=== PATIENT | female | born 1965 | race Caucasian/White ===

== ENCOUNTER 2018-09-13 19:43 | Inpatient (IN) ==
[2018-09-13 21:22] LABS: BASO# 0.06 X1000 (0.0-0.2); BASO% 0.4 % (0.0-0.8); EOS# 0.52 X1000 (0.0-0.7); EOS% 3.8 % (0.0-10.0); HEMATOCRIT 37.9 % (37.0-47.0); HEMOGLOBIN 12.7 g/dL (12.0-16.0); IMM GRAN# 0.05 X1000 (0.0-0.04); IMM GRAN% 0.4 % (0.0-0.5); LYMPH# 3.51 X1000 (1.2-3.4); LYMPH% 25.8 % (20.5-51.1); MCH 28.6 PG (27-31); MCHC 33.5 g/dL (33-37); MCV 85.4 FL (81-99); MONO% 7.3 % (1.7-9.3); MPV 10.1 FL (7.4-10.4); NEUT# 8.47 X1000 (1.4-6.5); NEUT% 62.3 % (42.2-75.2); PLT 342 X1000 (130-400); RBC 4.44 XMIL (4.2-5.4); RDW 14.3 % (11.5-14.5); WBC 13.61 X1000 (4.8-10.8)
--- NOTE | 2018-09-13 21:23 | Diag Imaging Result Doc PS360 ---
EXAM: CHEST-PORTABLE HISTORY: psych screen TECHNIQUE: Portable chest COMPARISON: None. FINDINGS: The lungs are well expanded. The heart is not enlarged. The vessels are not distended. There are no infiltrates. No effusion identified. IMPRESSION: Negative exam. Electronically signed by Yobany Fine 09/13/2018 9:21 PM
[2018-09-13 21:33] LABS: UR AMPHETAMINES QUAL NONE DETECTED (NONE DETECT); UR BARBITUATES QUAL NONE DETECTED (NONE DETECT); UR BENZODIAZEPIN QUAL NONE DETECTED (NONE DETECT); UR CANNABINOIDS QUAL NONE DETECTED (NONE DETECT); UR COCAINE QUAL NONE DETECTED (NONE DETECT); UR METHADONE QUAL NONE DETECTED (NONE DETECT); UR METHAMPHETAMINE QUAL NONE DETECTED (NONE DETECT); UR OPIATES QUAL NONE DETECTED (NONE DETECT); UR OXYCODONE QUAL NONE DETECTED (NONE DETECT); UR PCP QUAL NONE DETECTED (NONE DETECT); UR PROPOXYPHENE QUAL NONE DETECTED (NONE DETECT); UR TCA QUAL NONE DETECTED (NONE DETECT)
[2018-09-13 21:41] LABS: ACETAMINOPHEN < 1.2 ug/mL (10-30); AGAP 14; ALKALINE PHOSPHATASE 106 U/L (32-104); BUN 10 mg/dL (8-22); CALCIUM 9.2 mg/dL (8.8-10.2); CHLORIDE 107 mmol/L (98-107); COSMO 283; CREATININE 0.7 mg/dL (0.5-0.9); ESTIMATED GFR > 60; GLUCOSE 111 mg/dL (70-104); GOT 12 U/L (10-30); GPT 21 U/L (10-36); POTASSIUM 3.8 mmol/L (3.5-5.1); SALICYLATES < 3.00 mg/dL (3-10); SODIUM 142 mmol/L (136-145); TCO2 22 mmol/L (25-35); TOTAL PROTEIN 6.4 g/dL (6.3-8.3)
--- NOTE | 2018-09-13 22:34 | PROVIDER DOCUMENTATION ---
This chart was entered by Sharmin Bai Scribe, acting as scribe for Johnny Jose MD. HPI-Psychological Disorder - General Chief Complaint: Psych Stated Complaint: suicidal ideations Time Seen by Provider: 09/13/18 20:00 Source: patient Allergies/Adverse Reactions: Patient Allergies Allergy/AdvReac Type Severity Reaction Status Date / Time Sulfa (Sulfonamide Allergy ANAPHYLAXIS Verified 09/02/18 00:53 Antibiotics) clindamycin AdvReac HIVES Verified 09/11/18 14:08 Home Medications: Home Medication List Medication Instructions Recorded Confirmed Last Taken Type Amoxicillin/Pot Clavulanate 875 mg PO Q12HR #14 tab 09/02/18 Unknown Rx [Augmentin] Amoxicillin/Pot Clavulanate 875 mg PO Q12HR #14 tab 09/11/18 Unknown Rx [Augmentin] - History of Present Illness-Psych Nature of Presenting Problem: pt is a 52 yr old female presenting via EMS with 2 week complaint of depression and suicidal ideation. pt states "Its time for me to go, I just don't want to be here anymore" also states "I've been sick and cant get over it and I'm tired of taking medications " pt reports she was seen by her PCP today after having a panic attack on Wednesday. pt reports recent sinus and upper respiratory infections and a nose bleed that lasted 3 days 08/24-08/27. pt plan to drive or walk into oncoming traffic Onset/Duration: reports: other (2 weeks) Timing: reports: changing over time, getting worse Situational problems related to:: reports: other (health issues) Psychiatric Complaints: reports: insomnia, suicidal ideation Substance Use: reports: denies Previous psych related hospitalizations?: No Patient arrived by:: EMS called by spouse/family Similar Symptoms Previously?: No Recently seen or treated by another doctor?: Yes (seen in ER 09/11/18, seen by PCP today) - Suicidal Ideation How did the ingestion/other suicidal act come to attention?: self reported to family Suicide Risk Assessment: depressed, organized plan, frightened friends-family Suicidal Attempt Method: reports: Motor Vehicle Review of Systems - Adult - REVIEW OF SYSTEMS - ADULT Constitutional: denies: fever Eyes: reports: no symptoms reported Ears, Nose, Mouth & Throat: reports: sinus problem Cardiovascular: reports: no symptoms reported Respiratory: denies: cough, shortness of breath Gastrointestinal: reports: no symptoms reported Genitourinary: reports: no symptoms reported Musculoskeletal: reports: no symptoms reported Integumentary: reports: no symptoms reported Neurological: reports: no symptoms reported Psychiatric: reports: anxiety, depression, emotional problems, suicidal thoughts Endocrine: reports: no symptoms reported Hematologic/Lymphatic: reports: no symptoms reported Allergic/Immunologic: reports: no symptoms reported All Other Systems: Reviewed and Negative Past History - Adult - PAST MEDICAL HISTORY-ADULT Review of Records: reports: Old Records Reviewed, Nursing Assessment Review, Medications Reviewed, Social history reviewed & non-contributory. Major Childhood Illnesses: reports: denies history Cardiovascular: reports: denies history Respiratory: reports: denies history Gastrointestinal: reports: denies history Obstetrical/Gynecological: reports: denies history Genitourinary: reports: denies history Musculoskeletal: reports: denies history Neurological: reports: denies history Endocrine/Immune: reports: denies history Other Conditions: reports: denies history - PRIOR SURGERIES/PROCEDURES Surgical/Procedure History: reports: BTL, orthopedic (extremity) (R wrist capral tunnel) - IMMUNIZATION STATUS Childhood Immunizations: See Nurse Assessment Flu Vaccine: See Nurse Assessment - FAMILY HISTORY Family History: reviewed, not pertinent - SOCIAL HISTORY Smoking: denies Substance Use: denies Living Situation: family Physical Exam-Psych Focus - Physical Exam-Psych Initial Vital Signs Reviewed: Yes (`) Appearance: appropriate appearance, neat, no apparent distress, alert Neurological: alert, depressed affect, flat Behavior/Eye Contact/Speech: cooperative, normal speech, avoids eye contact Thoughts/Hallucinations: normal thought pattern, no apparent hallucination HENMT: normocephalic/atraumatic, moist mucous membranes Neck: non-tender, full range of motion, supple, normal inspection Respiratory: chest non-tender, lungs clear, normal breath sounds Cardiovascular: normal peripheral pulses, regular rate, rhythm, no edema Abdominal Exam: normal bowel sounds, non tender, soft Lymphatic: no adenopathy Back Exam: normal inspection, no CVA tenderness, no vertebral tenderness Extremity: normal range of motion, non-tender, normal gait, normal inspection Integumentary: normal color, normal turgor, warm/dry Progress - PLAN OF CARE/RESULTS Progress/Plan/Lab Results: Vital Signs - 8 hr 09/14/18 00:00 Temperature 98 F Pulse Rate 78 Respiratory Rate 18 Blood Pressure 140/80 O2 Sat by Pulse Oximetry 99 Laboratory Results - last 24 hr 09/13/18 09/13/18 09/13/18 19:51 19:51 21:12 WBC RBC Hgb Hct MCV MCH MCHC RDW Std Deviation Plt Count MPV Immature Gran % (Auto) Neut % (Auto) Lymph % (Auto) Stark % (Auto) Eos % (Auto) Baso % (Auto) Immature Gran # (Auto) Neut # (Auto) Lymph # (Auto) Stark # (Auto) Eos # (Auto) Baso # (Auto) Sodium Potassium Chloride Carbon Dioxide Anion Gap BUN Creatinine Estimated GFR/1.73 m2 BUN/Creatinine Ratio Glucose Calculated Osmolality Calcium Magnesium Total Bilirubin AST ALT Alkaline Phosphatase Total Protein Albumin Globulin Albumin/Globulin Ratio TSH 1.41 Free T4 Urine Source CLEAN CATCH Urine Color YELLOW Urine Clarity CLEAR Urine pH 5.0 Ur Specific [place] 1.010 Urine Protein NEGATIVE Urine Ketones NEGATIVE Urine Blood NEGATIVE Urine Nitrite NEGATIVE Urine Bilirubin NEGATIVE Urine Urobilinogen NORMAL Urine Microscopic RBC <10 Urine WBC 2+ A Urine Microscopic WBC 10-20 A Ur Epithelial Cells <10 Urine Bacteria 2+ Urine Glucose NEGATIVE Salicylates Urine Opiates Screen NONE DETECTED Ur Oxycodone Screen NONE DETECTED Urine Methadone Screen NONE DETECTED U Propoxyphene Qual NONE DETECTED Acetaminophen Ur Barbituates Screen NONE DETECTED Ur Tricyclics Screen NONE DETECTED Ur Phencyclidine Scrn NONE DETECTED Ur Amphetamines Screen NONE DETECTED U Methamphetamines Scrn NONE DETECTED U Benzodiazepines Scrn NONE DETECTED Urine Cocaine Screen NONE DETECTED U Cannabinoids Screen NONE DETECTED Plasma/Serum Ethyl Alc RPR 09/13/18 09/13/18 09/13/18 21:12 21:12 21:12 WBC 13.61 H RBC 4.44 Hgb 12.7 Hct 37.9 MCV 85.4 MCH 28.6 MCHC 33.5 RDW Std Deviation 14.3 Plt Count 342 MPV 10.1 Immature Gran % (Auto) 0.4 Neut % (Auto) 62.3 Lymph % (Auto) 25.8 Stark % (Auto) 7.3 Eos % (Auto) 3.8 Baso % (Auto) 0.4 Immature Gran # (Auto) 0.05 H Neut # (Auto) 8.47 H Lymph # (Auto) 3.51 H Stark # (Auto) 1.00 H Eos # (Auto) 0.52 Baso # (Auto) 0.06 Sodium 142 Potassium 3.8 Chloride 107 Carbon Dioxide 22 L Anion Gap 14 BUN 10 Creatinine 0.7 Estimated GFR/1.73 m2 > 60 BUN/Creatinine Ratio 14 Glucose 111 H Calculated Osmolality 283 Calcium 9.2 Magnesium 2.3 Total Bilirubin 0.20 AST 12 ALT 21 Alkaline Phosphatase 106 H Total Protein 6.4 Albumin 4.0 Globulin 2.0 Albumin/Globulin Ratio 2.0 TSH Free T4 Urine Source Urine Color Urine Clarity Urine pH Ur Specific [place] Urine Protein Urine Ketones Urine Blood Urine Nitrite Urine Bilirubin Urine Urobilinogen Urine Microscopic RBC Urine WBC Urine Microscopic WBC Ur Epithelial Cells Urine Bacteria Urine Glucose Salicylates < 3.00 L Urine Opiates Screen Ur Oxycodone Screen Urine Methadone Screen U Propoxyphene Qual Acetaminophen < 1.2 L Ur Barbituates Screen Ur Tricyclics Screen Ur Phencyclidine Scrn Ur Amphetamines Screen U Methamphetamines Scrn U Benzodiazepines Scrn Urine Cocaine Screen U Cannabinoids Screen Plasma/Serum Ethyl Alc RPR 09/13/18 09/13/18 21:12 21:12 WBC RBC Hgb Hct MCV MCH MCHC RDW Std Deviation Plt Count MPV Immature Gran % (Auto) Neut % (Auto) Lymph % (Auto) Stark % (Auto) Eos % (Auto) Baso % (Auto) Immature Gran # (Auto) Neut # (Auto) Lymph # (Auto) Stark # (Auto) Eos # (Auto) Baso # (Auto) Sodium Potassium Chloride Carbon Dioxide Anion Gap BUN Creatinine Estimated GFR/1.73 m2 BUN/Creatinine Ratio Glucose Calculated Osmolality Calcium Magnesium Total Bilirubin AST ALT Alkaline Phosphatase Total Protein Albumin Globulin Albumin/Globulin Ratio TSH Free T4 1.48 Urine Source Urine Color Urine Clarity Urine pH Ur Specific [place] Urine Protein Urine Ketones Urine Blood Urine Nitrite Urine Bilirubin Urine Urobilinogen Urine Microscopic RBC Urine WBC Urine Microscopic WBC Ur Epithelial Cells Urine Bacteria Urine Glucose Salicylates Urine Opiates Screen Ur Oxycodone Screen Urine Methadone Screen U Propoxyphene Qual Acetaminophen Ur Barbituates Screen Ur Tricyclics Screen Ur Phencyclidine Scrn Ur Amphetamines Screen U Methamphetamines Scrn U Benzodiazepines Scrn Urine Cocaine Screen U Cannabinoids Screen Plasma/Serum Ethyl Alc RPR NON-REACTIVE Orders Category Date Time Status Nursing- Obtain EKG once Care 09/13/18 20:24 Active CHEST-PORTABLE [RAD] Stat Exams 09/13/18 20:24 Completed ACETAMINOPHEN [TDM] Stat Lab 09/13/18 21:12 Completed ALCOHOL BLOOD Stat Lab 09/13/18 21:12 Completed CBC WITH ELECTRONIC DIFF [HEME] Stat Lab 09/13/18 21:12 Completed COMPREHENSIVE METABOLIC PANEL [CHEM] Stat Lab 09/13/18 21:12 Completed FREE T4 Stat Lab 09/14/18 01:30 Results MAGNESIUM [CHEM] Stat Lab 09/13/18 21:12 Completed RPR [SERO] Stat Lab 09/14/18 01:30 Completed SALICYLATES [TDM] Stat Lab 09/13/18 21:12 Completed TSH Stat Lab 09/13/18 21:12 Completed UA NIMS W/REFLEX CULT PL [URINALYSIS] Stat Lab 09/13/18 19:51 Completed URINE CULTURE [RM] Routine Lab 09/14/18 02:42 Ordered UR[address] DRUG SCREEN PL Stat Lab 09/13/18 19:51 Completed VITAMIN D 25 HYDROXY Stat Lab 09/14/18 01:30 Results EKG [EKG] Stat Ther 09/13/18 20:24 Ordered Result Diagrams: 09/13/18 21:12 09/13/18 21:12 - PSYCHIATRIC Medically clear for psych eval and/or transfer to [facility] Yes (Patient has mild dehydration. Otherwise is medically stable for psych ) Psych patient progress: Randall Rde called at 2233 09/13/18 2324: DW Screener will try to find placement for patient. 0350: Accepted in transfer to [place], Dr. Husain - EKG 1 Time of EKG reading by physician:: 21:46 EKG Read and Signed by:: Johnny Jose EKG Interpretation (*Must complete 3 of following elements*): Abnormal ( artifact present, cannot rule out anteroir infarct-age undetermined) Rate: 79 Rhythm: nsr QRS: LVH (may be normal variant) - XRAY 1 XRAY Study: Chest Impression: Normal (Signed EXAM: CHEST-PORTABLE HISTORY: psych screen TECHNIQUE: Portable chest COMPARISON: None. FINDINGS: The lungs are well expanded. The heart is not enlarged. The vessels are not distended. There are no infiltrates. No effusion identified. IMPRESSION: Negative exam. Electronically signed by Yobany Fine 09/13/2018 9:21 PM 09/13/182120 Interpreting Physician: Yobany Fine MD Dictated Date/Time: 09/13/182120) Comparison with other Films: no prior study Departure - Departure Date of Disposition Decision: 09/14/18 Time of Disposition Decision: 03:51 DIAGNOSIS: Depression with suicidal ideation Disposition: PSYCHIATRIC HOSPITAL/[facility] Certified Medical Emergency: Emergent Condition: Fair Referrals and Follow-Ups: None,PCP [Primary Care Provider] - - Critical Care Note This patient required my direct & personal management of CC.: No Attestation - Physician/ JAILENE Attestation Patient care was provided by Advanced Practice Provider:: No The physician spent face to face time with patient:: Yes Advanced Practice Provider documentation review:: Supervising physician onsite and consulted in the evaluation and care of this patient. The physician did have a face to face encounter with the patient. This chart was documented by the indicated scribe, (Sharmin Bai, Scribcindy) and accurately reflects the services I performed and decisions made by me, Johnny Joes MD, as attested by the provider's signature.
[2018-09-14 02:14] LABS: MAGNESIUM 2.3 mg/dL (1.5-2.7)
[2018-09-14 02:27] LABS: FREE T4 1.48 ng/dL (0.93-1.70)
[2018-09-14 02:38] LABS: BILIRUBIN URINE NEGATIVE (NEGATIVE); BLOOD URINE NEGATIVE (NEGATIVE); CLARITY CLEAR (CLEAR); COLOR YELLOW; GLUCOSE URINE NEGATIVE (NEGATIVE); KETONE URINE NEGATIVE (NEGATIVE); LEUKOCYTES URINE 2+ (NEGATIVE); NITRITE URINE NEGATIVE (NEGATIVE); PROTEIN URINE NEGATIVE (NEGATIVE); UROBILINOGEN URINE NORMAL
[2018-09-14 02:42] LABS: URINE BACTERIA 2+ /HFP; URINE EPITHELIAL CELLS <10 /HPF (<10); URINE RBC <10 /HPF (<10); URINE SOURCE CLEAN CATCH
--- NOTE | 2018-09-14 08:02 | EKG Report ---
Test Performed on : 09/13/2018 8:41:05 PM Test Reason : check qt interval Blood Pressure : / mmHG Vent. Rate : 079 BPM Atrial Rate : 079 BPM P-R Int : 158 ms QRS Dur : 074 ms QT Int : 372 ms P-R-T Axes : 029 -03 021 degrees QTc Int : 426 ms Normal sinus rhythm. Minimal voltage criteria for LVH, may be normal variant Cannot rule out Anterior infarct , age undetermined Abnormal ECG When compared with ECG of 11-SEP-2018 14:13, (Unconfirmed) Nonspecific T wave abnormality, improved in Anterior leads Unconfirmed Result
--- NOTE | 2018-09-14 08:43 | Diag Imaging Result Doc PS360 ---
EXAM: CT HEAD W/O CONTRAST HISTORY: altered mental status TECHNIQUE: Images were obtained from the skull base to vertex without IV contrast as per standard protocol. COMPARISON: None. FINDINGS: There are no extra-axial collections. There is right parietal hypodensity which may represent acute or subacute infarct. Consider follow-up MRI. No midline shift or mass effect. No hydrocephalus. No evidence for hemorrhage. Paranasal sinuses are clear. This report was discussed with Dr. Haq on 09/14/2018 at 8:35 AM with read back verification. IMPRESSION: 1.Right parietal hypodensity may indicate acute or subacute infarct. Consider follow-up MRI. No evidence for hemorrhage. This exam was performed using automated exposure control, adjustment of mA or kV according to patient size, and/or use of iterative reconstruction technique. Electronically signed by Monie Cabrera 09/14/2018 8:40 AM
[2018-09-14] MEDS ORDERED: NS 1,000 ML IV ONE (12:04)
[2018-09-14] MEDS ORDERED: ZOFRAN IV PRN (12:04)
[2018-09-14] MEDS ORDERED: TYLENOL PO PRN (12:04)
--- NOTE | 2018-09-14 12:46 | HISTORY AND PHYSICAL ---
PRIMARY CARE PHYSICIAN: ANGEL LUIS Delgado CHIEF COMPLAINT: Depression with suicidal ideations, stating that she either wanted to drive her vehicle into traffic or to instrumentation technician the middle of traffic. HISTORY OF PRESENTING ILLNESS: This is a 52-year-old female who presents to [facility] ER with complaints of increased depression, sadness, hopelessness, helplessness with suicidal ideations. States her plan would be to either drive her vehicle into traffic oncoming or to instrumentation technician oncoming traffic. States she has felt this way since she has been sick recently, and was apparently seen in the emergency room at [facility] ER on 08/24/2018 where she began feeling a pop in her head while taking a shower and began having a nosebleed from her left naris. She was pouring blood, so she called 911 and she came to the emergency room, had her nose packed at that time, placed on antibiotics. States she followed up with ENT, but has had these feelings ever since that happened, which would be 2 to 3 weeks. This morning, we did a CT of her head that showed a right parietal hypodensity that may indicate an acute or subacute infarct and consider followup MRI, but no evidence of hemorrhage. So, she will be admitted to the intensive care unit with 1 on 1 staff for further evaluation and treatment. PAST MEDICAL HISTORY: None. PAST SURGICAL HISTORY: Bilateral tubal ligation, and a right carpal tunnel repair. FAMILY HISTORY: Reviewed and noncontributory. SOCIAL HISTORY: She currently lives with family. Denies any tobacco, alcohol or illicit drug use. ALLERGIES: Sulfa and clindamycin. HOME MEDICATIONS: Will need to be updated and confirmed and then we will review. We will place an order for nursing to update and confirm her home medications. LABORATORY DATA: Showed a white blood cell count of 13.61, hemoglobin 12.7, hematocrit 37.9, platelets 342,000. Sodium 142, potassium 3.8, chloride 107, CO2 22, BUN of 10, creatinine 0.7, glucose 111, magnesium of 2.3. TSH 1.41, free T4 1.48. Urinalysis was negative nitrites, 2+ white blood cells, 2+ bacteria. Salicylate level less than 3. Acetaminophen level less than 1.2. Urine drug screen was all negative. Serum alcohol level showed none detected. Chest x-ray showed a negative exam. CT of the head showed an impression of a right parietal hypodensity that may indicate acute or subacute infarct. Consider followup MRI. No evidence for hemorrhage. REVIEW OF SYSTEMS: She denied any fever, chills, blurred vision, dizziness. No further nose bleeding noted. She is positive for feeling hopeless, helpless, suicidal ideations with a plan. She denied any chest pain, coughing, shortness of breath, abdominal pain, constipation, diarrhea, burning or hurting with urination. PHYSICAL EXAMINATION: VITAL SIGNS: On arrival, she had a temperature of 98 degrees, pulse 78, respirations 18, blood pressure 144/83, saturating 99% on room air. GENERAL: This is a 52-year-old female who is sitting up in the bed and answers questions appropriately. HENT: Appears normocephalic and atraumatic. Normal ENT inspection. Oropharynx and nares are clear. EYES: Pupils are equal, round, reactive to light and accommodation. Extraocular movements are intact. NECK: Normal inspection. Normal range of motion. LUNGS: Clear to auscultation bilaterally with equal lung expansion and chest wall movement. HEART: With regular rate and rhythm. No murmurs, rubs, or gallops. ABDOMEN: Soft, nontender, nondistended. Bowel sounds are present x4 quadrants. MUSCULOSKELETAL: Has 5/5 strength x4 extremities. NEUROLOGICAL: The cranial nerves 2-12 are grossly intact. ASSESSMENT: 1. An acute cerebrovascular accident. 2. Urinary tract infection. 3. Depression with suicidal ideation. PLAN: She will be admitted to the intensive care unit. Placed on one-to-one observation. We are going to obtain an MRI of the brain without contrast today. Check a urine culture. Placed on neuro checks q.4 hours. Healthy heart diet, telemetry, O2 per protocol. Normal saline at 125 mL an hour, Zofran 4 mg IV q.[address] hours [address]. We will place her on Rocephin 1 gram IV q.24. Once we have medically ruled out by reviewing her MRI for stroke, we may be able to get her to a psychiatric facility, or if she definitely has had the stroke we will do some further testing, at that time. Further orders after being seen by attending and reviewing test results. Dictated by ANGEL LUIS Hurst for Lonnie Talbot MD cc: ANGEL LUIS Hurst MD
[2018-09-14 13:03] LABS: VITAMIN D 25 HYDROXY 18.3 NG/DL
[2018-09-14] MEDS: ASPIRIN EC PO SCH (13:57)
[2018-09-14] MEDS: ROCEPHIN 1 GM in NS 50 ML IV SCH (13:57)
--- NOTE | 2018-09-14 13:57 | Diag Imaging Result Doc PS360 ---
EXAM: MRI BRAIN W/WO CONTRAST 09/14/2018 HISTORY: cva TECHNIQUE: T1 sagittal, axial, post gadolinium-enhanced axial with coronal reformation, T2, FLAIR, DWI axial and coronal gradient echo. COMMENT: There is no evidence of mass effect, bleed, or abnormal extra-axial fluid collection. There is no evidence of restricted diffusion. There are some patchy areas of increased T2-weighted signal intensity particularly in the subcortical white matter of the posterior right parietal lobe. This may be due to a previous infarct or dysmyelinating disease. There is no evidence of abnormal gadolinium enhancement. IMPRESSION: Chronic white matter changes. Electronically signed by Tanner Bonilla 09/14/2018 1:55 PM
--- NOTE | 2018-09-14 17:40 | CONSULTATION ---
DATE OF CONSULTATION: 09/14/2018 LOCATION: [facility] ICU bed #3. HISTORY OF PRESENT ILLNESS: Ms. Mcnamara is 52 years old. She reports feeling depressed with anxiety and panic. These are her words. She reports she has not had psychiatry evaluation. There is no history of serious head injury, previous diagnosed stroke, seizure, other neurologic event. She has not had periods of altered awareness or unconsciousness. She reports noticing in the last year, occasional numbness and tingling over the left side of her face "like I slept on it" and these symptoms have usually been noticed on waking. This has always been transient. She has never noticed any similar symptoms in the limbs. She has not had focal vision loss. She is not aware of any other focal neurologic problem. She has not been bothered much by headache. She reports no previously diagnosed hypertension, dyslipidemia, heart disease. She does not smoke cigarettes. Workup here includes brain MRI done without contrast showing chronic white matter changes diffusely with most prominent findings in the right posterior hemisphere. WBC count was 13,610. She has pyuria and bacteria. Urine drug screen was all negative. Blood sugar was 111 this admission. Computer record shows blood sugars into the 130s in the past. She has been afebrile. Systolic blood pressures have ranged 130s to 140s here. Heart rate has ranged 70s to 90s here. PHYSICAL EXAMINATION: On exam, she is awake, alert, attentive, oriented. Speech is not dysarthric. Language function is intact. Her mental status seems reasonable and appropriate now. She asked me "why am I so depressed?" and she did not ask any unreasonable questions. Memory of recent and remote events is good. Head and neck are unremarkable. There is no meningismus. Visual robledo are full tested carefully by confrontational finger counting. Extraocular movements are full. Facial motility is normal and symmetric. She reports equal sensation across the forehead and inconsistent slightly diminished light touch appreciation over the left lower face compared to the right. Gag is intact. Tongue is midline. Palate is midline. Shoulder shrug is good bilaterally. Strength is normal in the arms and legs. Limb tone is symmetric. Plantar response is silent bilaterally. She reports unequal sensation over the palms and she attributes that to chronic changes associated with previous carpal tunnel problems. Otherwise, sensation is symmetric over the limbs. Proprioception is good. I did not test her gait. IMPRESSIONS: 1. Depression, anxiety. I do not have any specific suggestion. If she does not respond to usual management, psychiatry referral might be considered. She told me she has not seen a psychiatrist. 2. MRI findings. She has risk factors for cerebrovascular ischemic problems including age, apparent mild hypertension, possibly mild diabetes mellitus. I think we should check lipids and treat that if indicated. Would consider carotid ultrasound. Would follow blood pressures and consider treating if continues elevated. Would add daily aspirin unless contraindicated. Depending on her clinical course, if she continues to have question of cerebrovascular ischemic problems, we might consider CT angiogram of the brain and referral for outpatient stroke clinic evaluation. We might consider repeating her MRI scan with contrast. EEG could provide some reassurance, but is not definitely needed. Later, if no findings pn workup, ophthalmology referral could be considered to formally assess visual robledo. I discussed my difficulty making firm impression and my suggestions thoroughly with patient and at the bedside. Thanks for asking Neurology to see Ms. Mcnamara. cc: MD Lonnie Zavala III, MD MTDD
--- NOTE | 2018-09-14 18:05 | HISTORY AND PHYSICAL ---
SUBJECTIVE: Briefly, this is a 52-year-old female who came in with depression, anxiety, suicidal ideation. Incidentally, she had a head CT analyzed which showed a questionable right parietal defect, which was thought to be possibly a stroke, although she had a nonfocal neurological exam, really unremarkable. MRI has since been obtained and showed questionable patchy two T2-weighted signals consistent with possible demyelinating disease. The patient's really major complaints are just depression. PLAN: I am going to go ahead and get a neural opinion and see how she does. In any case, we will get an opinion and see how she does, follow neurologically. If she is stable, we will progress towards psychiatric evaluation, cerebritis and other autoimmune causes. Encephalitis could be contributing. This has been a fairly sudden onset psychiatric condition from what I understand, so we are trying to rule out other etiologies. cc: Lonnie Talbot MD
[2018-09-14 18:50] LABS: AGAP 12; ALBUMIN 3.7 g/dL (3.5-5.0); ALKALINE PHOSPHATASE 97 U/L (32-104); BUN 9 mg/dL (8-22); CALCIUM 9.1 mg/dL (8.8-10.2); CHLORIDE 108 mmol/L (98-107); COSMO 284; CREATININE 0.7 mg/dL (0.5-0.9); ESTIMATED GFR > 60; GLUCOSE 104 mg/dL (70-104); GOT 16 U/L (10-30); GPT 18 U/L (10-36); POTASSIUM 4.2 mmol/L (3.5-5.1); SODIUM 143 mmol/L (136-145); TCO2 23 mmol/L (25-35); TOTAL BILIRUBIN < 0.15 mg/dL (0.20-1.00); TOTAL PROTEIN 6.7 g/dL (6.3-8.3)
--- NOTE | 2018-09-14 19:58 | Diag Imaging Result Doc PS360 ---
EXAM: CT ANGIOGRAM HEAD 09/14/2018 HISTORY: cva TECHNIQUE: This exam was performed using automated exposure control, adjustment of mA or kV according to patient size, and/or use of iterative reconstruction technique. COMMENT: 3-D MIPS were performed. There is no evidence of major branch occlusion. There is no evidence of aneurysm. There is otherwise no evidence of abnormal contrast enhancement. IMPRESSION: No definite vascular abnormality. Electronically signed by Tanner Bonilla 09/14/2018 7:56 PM
[2018-09-14] MEDS: EFFEXOR XR PO SCH (21:41)
[2018-09-15] MEDS: LOVENOX SUBQ SCH (06:05)
[2018-09-15 06:53] LABS: BASO# 0.07 X1000 (0.0-0.2); BASO% 0.6 % (0.0-0.8); EOS# 0.59 X1000 (0.0-0.7); EOS% 5.1 % (0.0-10.0); HEMATOCRIT 37.6 % (37.0-47.0); HEMOGLOBIN 12.2 g/dL (12.0-16.0); IMM GRAN# 0.04 X1000 (0.0-0.04); IMM GRAN% 0.3 % (0.0-0.5); LYMPH# 3.08 X1000 (1.2-3.4); LYMPH% 26.4 % (20.5-51.1); MCHC 32.4 g/dL (33-37); MCV 86.2 FL (81-99); MONO% 7.7 % (1.7-9.3); MPV 10.5 FL (7.4-10.4); NEUT# 6.99 X1000 (1.4-6.5); NEUT% 59.9 % (42.2-75.2); PLT 333 X1000 (130-400); RBC 4.36 XMIL (4.2-5.4); RDW 14.6 % (11.5-14.5); WBC 11.67 X1000 (4.8-10.8)
[2018-09-15 07:45] LABS: CHOLESTEROL 117 mg/dL (0-200); HDL 43 mg/dL (45-65); LDL 47 mg/dL; TRIGLYCERIDES 133 mg/dL (35-135); VLDL 27 mg/dL
[2018-09-15] MEDS: ASPIRIN EC PO SCH (09:38)
[2018-09-15] MEDS: EFFEXOR XR PO SCH ×2 (09:39→20:55)
--- NOTE | 2018-09-15 14:09 | PROGRESS NOTE ---
DATE: 09/15/2018 SUBJECTIVE: She is sitting up in bed. She looks a little bit better. No major complaints. OBJECTIVE: Vital signs: Blood pressure is 127/76, heart rate of 50, respiratory rate 20, temperature 97.8 degrees, 97% on room air. Cardiovascular: Regular rate and rhythm. Pulmonary: Bilateral breath sounds clear to auscultation. Gastrointestinal: Soft, nontender, nondistended. Bowel sounds are positive. LABORATORY DATA: White count 11, hemoglobin 12, hematocrit 37, platelets 333,000. Ischemic white matter changes which are felt to be negative and consistent with old changes and possibly changes related just to aging, possibly a little premature changes, but no clear stroke. Her workup is negative. Her LDL is actually pretty good, 47. The rest of her tests are really unremarkable. Her sedimentation rate is negative. Her CRP is mildly elevated. WALLACE is still pending. Her CT angiogram, though, was completely normal. PROBLEM LIST: 1. Possible ischemic changes. I think she is medically stable for discharge. 2. Psychiatric. She has got depression and suicidal ideation, although no attempt, but she does have a plan. Recommendations for inpatient psychiatric per [facility] and no bed is available and she lost the bed that was available to her yesterday. DISPOSITION: I am just waiting on psychiatric placement which is not forthcoming at this point, but we will follow. cc: Lonnie Talbot MD
[2018-09-15] MEDS: ROCEPHIN 1 GM in NS 50 ML IV SCH (14:49)
--- NOTE | 2018-09-15 17:01 | Extremity Venous Study ---
EXAM: Carotid Ultrasound - 09/15/2018 HISTORY: tia TECHNIQUE: Carotid flow studies COMPARISON: None. FINDINGS: There is no substantial chronic plaque identified in the right carotid system. Maximum systolic velocity in the right internal carotid is 71 cm/s, and maximum diastolic velocity is 26 cm/s. The right internal to common carotid systolic velocity ratio is 0.84. The flow velocities and ratio are consistent with 0-39% stenosis at the right internal carotid. The right vertebral demonstrates antegrade flow. There is no substantial atherosclerotic plaque identified in the left carotid system. Maximum systolic velocity in the left internal carotid is 67 cm/s, and maximum diastolic velocity is 28 cm/s. The left internal to common carotid systolic velocity ratio is 0.72. The flow velocities and ratio are consistent with 0-39% stenosis at the left internal carotid. The left vertebral demonstrates antegrade flow. IMPRESSION: 0-39% stenosis at right internal carotid. 0-39% stenosis at left internal carotid. Electronically signed by Alberto Rangel 09/15/2018 4:59 PM
[2018-09-15] MEDS: KLONOPIN PO PRN ×2 (18:34→23:54)
[2018-09-15] MEDS ORDERED: AUGMENTIN PO SCH (21:00)
[2018-09-16] MEDS: LOVENOX SUBQ SCH (06:11)
[2018-09-16] MEDS: EFFEXOR XR PO SCH (09:32)
[2018-09-16] MEDS: ASPIRIN EC PO SCH (09:32)
[2018-09-16] MEDS: ROCEPHIN 1 GM in NS 50 ML IV SCH (11:53)
[2018-09-16 12:06] VITALS: BP 136/89
[2018-09-16] MEDS: KLONOPIN PO PRN (14:10)
--- NOTE | 2018-09-16 22:31 | DISCHARGE SUMMARY ---
ADMISSION DATE: 09/14/2018 DISCHARGE DATE: 09/16/2018 PRIMARY CARE PHYSICIAN: ANGEL LUIS Del Valle. ADMISSION DIAGNOSES: 1. An acute cerebrovascular accident. 2. Urinary tract infection. 3. Depression with suicidal ideations. DISCHARGE DIAGNOSES: 1. Depression with suicidal ideations. 2. Possible ischemic changes but was ruled out for a cerebrovascular accident by MRI of the brain and a head CTA. SUMMARY OF FINDINGS: This is a 52-year-old female who presented to the emergency room with increased depression, sadness, hopeless, helplessness, and suicidal ideations. Stated that she had a plan to either drive her vehicle into oncoming traffic or to productivity engineer oncoming traffic. States that she had felt this way since she became sick recently with a sinusitis that caused a "pop in her head" while she was taking a shower on 08/24/2018 and began having a nosebleed from her left naris. She was followed up after she was packed in her nares with ENT. Placed on antibiotics. States she began having this depression with suicidal ideations since all of this happened. When she presented to the emergency room, we did a CT of her head that showed a right parietal hypodensity that may indicate an acute or subacute infarct and that further testing was required with a brain MRI which we did that showed chronic white matter changes only. We also did a head CTA that showed no vascular abnormality. We consulted Neurology whose impression was her depression and anxiety. He felt with the MRI findings that she had risk factors for cerebrovascular ischemic problems and would treat with aspirin unless contraindicated but otherwise the patient would require psychiatric hospitalization for her depression with suicidal ideations, and she is currently being transferred to [facility] psychiatric floor for further evaluation and treatment. Medications will be addressed once she arrives to [facility] for further evaluation and treatment. TIME: 33 minute discharge. Dictated by ANGEL LUIS Hurst for Lonnie Talbot MD cc: ANGEL LUIS Hurst MD Eric Crampsey, CRNP
--- NOTE | 2018-09-17 07:10 | DISCHARGE SUMMARY ---
ADMISSION DATE: 09/14/2018 DISCHARGE DATE: 09/16/2018 HISTORY: The patient is stable. On day of discharge, she is still having some suicidal ideation, but overall doing okay. She got very anxious last night, and required some Klonopin. Overall, she is doing okay. Medically stable for discharge to a psychiatric facility. We have discussed the case with [facility] and have been able to do that. cc: Lonnie Talbot MD
== END 2018-09-16 16:15 | DRG 881 ==
LOC: P.ED 19:43 → SUATTDRO 09-14 10:02 → P.ICU 09-14 10:02 → P.MEDSURG 09-16 00:06
PROVIDERS: ADMIT Internal Medicine; ATTEND Internal Medicine
CPT/HCPCS: 70450; 70496; 70553; 71010; 71045; 80053; 80061; 80104; 80196; 80301; 80305; 80307; 80320; 80324; 80329; 81001; 81025; 82003; 82055; 82306; 83735; 84439; 84443; 85025; 85651; 86038; 86039; 86140; 86592; 87088; 93005; 93880; 99285; A9270; A9579; G0431; G0434; G0477; G0480; G6038; G6039; G6040; J0696; J1650; J7030; Q9967